=== PATIENT | male | born 1995 | race Caucasian/White ===

== ENCOUNTER 2017-01-08 23:17 | Emergency (ER) | payer SELFPAY ==
[2017-01-08] MEDS ORDERED: CHLORHEXIDINE GLUCONATE 4 % 15 ML UD TOP ONE ×2 (23:30→23:51)
[2017-01-08 23:41] VITALS: BP 153/91; TEMP 98; O2SAT 96
[2017-01-08] MEDS ORDERED: LIDOCAINE 1% 10 ML VIAL INJ ONE (23:42)
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
[2017-01-08] MEDS ORDERED: traMADol HCL 50 MG TAB PO ONE (23:59)
[2017-01-09] MEDS ORDERED: NEOMYCIN-BACITRACIN-POLYMYXIN 0.9 GM UD TOP ONE (00:09)
== END 2017-01-09 00:14 | disposition home or self-care (01) ==
LOC: ER 23:17
DX: S61.412A Laceration without foreign body of left hand, initial encounter (principal); W27.2XXA Contact with scissors, initial encounter; Y92.9 Unspecified place or not applicable

== ENCOUNTER 2020-04-13 22:58 | Emergency (ER) | payer SELFPAY ==
[2020-04-13] MEDS ORDERED: FLUORESCEIN SODIUM OPHTH STRIP ONE (23:05)
[2020-04-13] MEDS ORDERED: TETRACAINE HCL 0.5% OPHTH SOL 1 DROP ONE (23:05)
[2020-04-13] MEDS ORDERED: ERYTHROMYCIN OPHTH OINT 1 APPLIC ONE (23:19)
--- NOTE | 2020-04-13 23:24 | ED.PDOC ---
History of Present Illness - General Chief Complaint: Eye Problems Stated Complaint: eyes burning due to welding Time Seen by Provider: 04/13/20 23:21 Source: patient Exam Limitations: no limitations - History of Present Illness Initial Comments: The patient is a 25-year-old male presented emergency room after having burned his eyes welding today. There are no foreign bodies in the eyes. Discomfort is symmetrical. Mild blurry vision bilaterally. There is conjunctival injection. Pupils are reactive. Extraocular movements are intact. No trauma. The patient may be a common mistake of leaving the welding shield up in order to start his welds. The patient has a UV or thermal keratopathy. Timing/Duration: 4-6 hours Severity: moderate Improving Factors: nothing, other - Keeping his eyes closed Worsening Factors: nothing, other - Bright lights and went Associated Symptoms: denies symptoms Allergies/Adverse Reactions: Allergies NO KNOWN ALLERGY Allergy (Verified 01/08/17 23:40) Home Medications: Ambulatory Orders Cephalexin Monohydrate [Keflex] 500 mg PO TID #15 cap 01/09/17 Erythromycin Ophth Oint 0.5 inch BOTH_EYES Q6HR #1 day 04/13/20 Review of Systems - Review of Systems Constitutional: States: no symptoms reported EENTM: States: see HPI Respiratory: States: no symptoms reported Cardiology: States: no symptoms reported Gastrointestinal/Abdominal: States: no symptoms reported Genitourinary: States: no symptoms reported Musculoskeletal: States: no symptoms reported Skin: States: no symptoms reported Neurological: States: no symptoms reported Endocrine: States: no symptoms reported All other Systems: No Change from Baseline Past Medical History (General) - Patient Medical History Hx Seizures: No Hx Stroke: No Hx Dementia: No Hx Asthma: No Hx of COPD: No Hx Cardiac Disorders: No Hx Congestive Heart Failure: No Hx Pacemaker: No Hx Hypertension: No Hx Thyroid Disease: No Hx Diabetes: No Hx Gastroesophageal Reflux: Yes Hx Renal Disease: No Hx Cancer: No Hx of HIV: No Hx Hepatitis C: No Hx MRSA: No Surgical History: no surgical history - Vaccination History Hx Tetanus, Diphtheria Vaccination: Yes Hx Influenza Vaccination: Yes Hx Pneumococcal Vaccination: No Immunizations Up to Date: Yes - Social History Hx Tobacco Use: Yes Hx Chewing Tobacco Use: No Hx Alcohol Use: No Hx Substance Use: No Hx Substance Use Treatment: No Hx Depression: No Feels Threatened In Home Enviroment: No Feels Threatened In a Relationship: No Hx Physical Abuse: No Hx Emotional Abuse: No Hx Suspected Abuse: No - Activities of Daily Living Hospice Agency (if applicable):: None - Female History Patient is a Female of Child Bearing Age (10 -59 yrs old): No - Triage Comment ED Triage Comment: 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 The patient is prescribed erythromycin ointment 1 cm to be placed every 4 hours for the next 3 days in each eye. He can additionally take 400 to 600 mg of Motrin or Advil for the next 3 days with food every 6 hours or so to help reduce inflammation and irritation. He needs to avoid wind in the eyes. A cool compress will also help. Lower lighting will also help. ER warnings are given. Keep routine follow-up with primary care doctor. [email or web address] Departure - Departure Clinical Impression: Keratopathy ICD-10 Supporting Text: Acute bilateral due to welding Disposition: Discharge to Home or Self Care Condition: Fair Departure Forms: ED Discharge - Pt. Copy, Patient Portal Self Enrollment Instructions: DI for Eye Pain Diet: regular diet Activity: increase activity as tolerated Prescriptions: Erythromycin Ophth Oint 0.5 inch BOTH_EYES Q6HR #1 day Home Medications: Ambulatory Orders Cephalexin Monohydrate [Keflex] 500 mg PO TID #15 cap 01/09/17 Erythromycin Ophth Oint 0.5 inch BOTH_EYES Q6HR #1 day 04/13/20 Additional Instructions: The patient is a 25-year-old male presenting with bilateral thermal/ultraviolet keratopathy due to welding today. The patient is prescribed erythromycin ointment 1 cm to be placed every 4 hours for the next 3 days in each eye. He can additionally take 400 to 600 mg of Motrin or Advil for the next 3 days with food every 6 hours or so to help reduce inflammation and irritation. He needs to avoid wind in the eyes. A cool compress will also help . Lower lighting will also help. ER warnings are given. Keep routine follow- up with primary care doctor.
[2020-04-13] MEDS ORDERED: ERYTHROMYCIN OPHTH OINT 1 APPLIC BOTH_EYES ONE (23:31)
[2020-04-13 23:52] VITALS: BP 126/86; TEMP 97.8; O2SAT 98
== END 2020-04-13 23:45 | disposition home or self-care (01) ==
LOC: ER 22:58
DX: H16.133 Photokeratitis, bilateral (principal); K21.9 Gastro-esophageal reflux disease without esophagitis; W89.8XXA Exposure to other man-made visible and ultraviolet light, initial encounter; Y93.89 Activity, other specified; Z87.891 Personal history of nicotine dependence; Y92.9 Unspecified place or not applicable

== ENCOUNTER 2020-06-08 19:21 | Emergency (ER) | payer SELFPAY ==
--- NOTE | 2020-06-08 19:29 | ED.PDOC ---
History of Present Illness - General Stated Complaint: Left hand pain Time Seen by Provider: 06/08/20 19:29 Source: patient, family Exam Limitations: no limitations - History of Present Illness Initial Comments: Patient complains of worsening pain in the left Hand gradually increasing after using a sledgehammer repeatedly for heavy labor yesterday. There was no known direct blow to the hand. He is right-handed. Timing/Duration: 24 hours Severity: moderate Improving Factors: rest Worsening Factors: movement Associated Symptoms: denies symptoms Allergies/Adverse Reactions: Allergies NO KNOWN ALLERGY Allergy (Verified 01/08/17 23:40) Home Medications: Ambulatory Orders Cephalexin Monohydrate [Keflex] 500 mg PO TID #15 cap 01/09/17 Erythromycin Ophth Oint 0.5 inch BOTH_EYES Q6HR #1 day 04/13/20 Review of Systems - Review of Systems Constitutional: States: no symptoms reported EENTM: States: no symptoms reported Respiratory: States: no symptoms reported Cardiology: States: no symptoms reported Gastrointestinal/Abdominal: States: no symptoms reported Genitourinary: States: no symptoms reported Musculoskeletal: States: see HPI Skin: States: no symptoms reported Neurological: States: no symptoms reported Endocrine: States: no symptoms reported Hematologic/Lymphatic: States: no symptoms reported Past Medical History (General) - Patient Medical History Hx Seizures: No Hx Stroke: No Hx Dementia: No Hx Asthma: No Hx of COPD: No Hx Cardiac Disorders: No Hx Congestive Heart Failure: No Hx Pacemaker: No Hx Hypertension: No Hx Thyroid Disease: No Hx Diabetes: No Hx Gastroesophageal Reflux: Yes Hx Renal Disease: No Hx Cancer: No Hx of HIV: No Hx Hepatitis C: No Hx MRSA: No - Vaccination History Hx Tetanus, Diphtheria Vaccination: Yes Hx Influenza Vaccination: Yes Hx Pneumococcal Vaccination: No - Social History Hx Tobacco Use: Yes Hx Chewing Tobacco Use: No Hx Alcohol Use: No Hx Substance Use: No Hx Substance Use Treatment: No Hx Depression: No Hx Physical Abuse: No Hx Emotional Abuse: No Hx Suspected Abuse: No Family Medical History - Family History Mother Family History: No Known Physical Exam - Physical Exam General Appearance: Alert, Comfortable Eye Exam: bilateral normal Ears, Nose, Throat: normal ENT inspection Neck: full range of motion Respiratory: no respiratory distress Cardiovascular/Chest: normal peripheral pulses Gastrointestinal/Abdominal: non tender Back Exam: normal inspection Extremity: other - Tenderness of the Proximaldorsal aspect of the left hand 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 Ibuprofen 600 mg p.o. - Results/Orders Results/Orders: X-rays of the left hand were negative. Departure - Departure Clinical Impression: Inflammatory tendinitis left hand Time of Disposition: 20:12 Disposition: Discharge to Home or Self Care Condition: Good Departure Forms: ED Discharge - Pt. Copy, Patient Portal Self Enrollment Instructions: Tendinopathy (DC) Diet: resume usual diet Activity: other - Use your left hand is much as possible for the next few days u ntil symptoms have improved. Home Medications: Ambulatory Orders Cephalexin Monohydrate [Keflex] 500 mg PO TID #15 cap 01/09/17 Erythromycin Ophth Oint 0.5 inch BOTH_EYES Q6HR #1 day 04/13/20 Additional Instructions: Use ibuprofen 2 or 3 [id number] pills 3-4 times a day with food until pain subsides.
--- NOTE | 2020-06-08 20:00 | RAD ---
LEFT HAND, 3 VIEWS, XR. CLINICAL HISTORY: Pain COMPARISON: None TECHNIQUE: PA, lateral, and oblique views of the left hand. FINDINGS: No acute fracture. No dislocation. Joint spaces are preserved. Normal bone mineralization. There is no lytic or sclerotic bone lesion. Unremarkable soft tissues. IMPRESSION: Unremarkable left hand. Electronically signed by: Lore Ruiz DO 06/08/2020 7:59 PM [employer]ENT[employer]
[2020-06-08 20:10] VITALS: TEMP 98.6; O2SAT 98
[2020-06-08] MEDS ORDERED: IBUPROFEN 200 MG TAB PO ONE (20:11)
[2020-06-08 20:22] VITALS: BP 148/88
== END 2020-06-08 20:22 | disposition home or self-care (01) ==
LOC: ER 19:21
DX: M77.8 Other enthesopathies, not elsewhere classified (principal); Z87.891 Personal history of nicotine dependence